=== PATIENT | male | born 1985 | race African-American/Black ===

== ENCOUNTER 2021-01-15 17:43 | Emergency (ER) | payer SELFPAY ==
[~2021-01-15] VITALS: Ht 182.9 cm; Wt 100.0 kg
[2021-01-15 18:03] VITALS: BP 156/87
[2021-01-15] MEDS ORDERED: CEFTRIAXONE SODIUM 500 MG/VIAL IM ONE (18:15)
[2021-01-15] MEDS ORDERED: DOXY100C2 MT (18:24)
[2021-01-19 06:07] LABS: NEISSERIA GONORRHOEAE NAA Positive (Negative)
== END 2021-01-15 18:43 | disposition home or self-care (01) ==
LOC: ER 17:43
DX: A54.01 Gonococcal cystitis and urethritis, unspecified (principal); R03.0 Elevated blood-pressure reading, without diagnosis of hypertension
CPT/HCPCS: 87491; 87591; 96372; 99283; J0696; Z7610